=== PATIENT | male | born 1990 ===

== ENCOUNTER 2021-10-22 04:46 | Emergency (ER) | payer SELFPAY ==
[2021-10-22] MEDS ORDERED: Diphtheria,Pertussis(Acell),Tetanus Vaccine 0.5 ML Syringe IM ONE (05:11)
== END 2021-10-22 06:25 ==
LOC: EDBD 04:46 → JP.ED 04:46
DX: S80.212A Abrasion, left knee, initial encounter (principal); S09.93XA Unspecified injury of face, initial encounter; F10.129 Alcohol abuse with intoxication, unspecified; Y90.8 Blood alcohol level of 240 mg/100 ml or more; Z23 Encounter for immunization
CPT/HCPCS: 36415; 70450; 70486; 80053; 80305-QW; 80307; 81001; 82803; 85025; 90471; 90715; 99283; 99284-25